=== PATIENT | male | born 1970 | race Caucasian/White ===

== ENCOUNTER 2023-10-04 08:34 | Outpatient (CLI) | payer MEDICAID ==
[~2023-10-04 08:34] MED LIST: ACYC-129 PO; CARV-50 PO; GABA300C PO; HYDR1TAB PO; LISI40TA13 PO; NOR5T PO
== END 2023-10-04 23:59 | disposition home or self-care (01) ==
LOC: MRI 08:34
PROVIDERS: ATTEND Family Medicine
DX: M75.81 Other shoulder lesions, right shoulder (principal); M75.21 Bicipital tendinitis, right shoulder; M25.811 Other specified joint disorders, right shoulder; M75.51 Bursitis of right shoulder; M75.01 Adhesive capsulitis of right shoulder
CPT/HCPCS: 73221